=== PATIENT | female | born 1980 | race Caucasian/White ===

== ENCOUNTER 2018-04-29 23:53 | Inpatient (IN) ==
[2018-04-30] MEDS ORDERED: ceFAZolin 2 GM Premix Inj 2 GM/50 ML PIGGYBACK IV.SIG PRN (00:35)
--- NOTE | 2018-04-30 00:35 | P.HPOB ---
History of Present Illness Primary Care Physician: UNKNOWN Dr. Sy Chief Complaint: Water broke History of Present Illness: Patient is a 38-year-old white female now 37 weeks presents with spontaneous rupture the membranes at term. Her amnio sure is positive and she had ruptured membranes at approximately 1830 yesterday. Her NST is reactive she is having irregular contractions. Her baby is in a breech presentation and has been for month this is due to her multiple fibroid tumors of the uterus Weeks Gestation:: 37 Para: 0 : 1 Review of Systems All other systems reviewed negative except as stated in HPI [facility] - Social History I have reviewed the patient's Social History: Yes - Tobacco History Smoking Status: Never smoker - Alcohol History How Often Do You Have a Drink Containing Alcohol: Never - Substance Use History Substance History: No History of Abuse - Travel History History of Recent Travel: No Recent Travel in the [facility] Within the Last 8 Weeks: No Recent Travel Out of the Country Within the Last 8 Weeks: No Medications and Allergies Allergies Allergy/AdvReac Type Severity Reaction Status Date / Time No Known Allergies Allergy Unverified 04/30/18 00:29 Home Medications Medication Instructions Recorded Confirmed Type vit [id number] 1 tab PO DAILY 04/30/18 04/30/18 History [ + DHA] Exam Vital signs: Vital Signs 04/30/18 00:20 Temperature 97.5 F L Pulse Rate 83 Respiratory Rate 18 Blood Pressure 124/82 Narrative: GENERAL: Well-nourished, well-developed patient. SKIN: Warm and dry. HEAD: Normocephalic and atraumatic. EYES: No scleral icterus. No injection or drainage. ENT: No nasal drainage noted. Mucous membranes pink. Airway patent. NECK: Supple, trachea midline. No JVD. CARDIOVASCULAR: Regular rate and rhythm without murmurs, gallops, or rubs. RESPIRATORY: Breath sounds equal bilaterally. No accessory muscle use. BREASTS: Bilateral exam showed no masses , no retractions, no nipple discharge. ABDOMEN/GI: Abdomen soft, non-tender, bowel sounds present, no rebound, no guarding Gravid to [-37] weeks size Fundal Height: [-37] GENITOURINARY: External Genitalia: intact and normal in appearance Cervix: [post-] Dilatation: [-2] Effacement: [80-] Station: [-3] Presentation: [-breech by US] Membranes: [ ruptured amnio sure positive] Uterine Contractions: [irreg-] FHT's: Category: [1-] Baseline: [133-] Reactive: [R-] Variability: [-mod] Decels: [-0] EXTREMITIES: No cyanosis or edema. BACK: Nontender without obvious deformity. No CVA tenderness. NEUROLOGICAL: Awake and alert. Motor and sensory grossly within normal limits. Five out of 5 muscle strength in all muscle groups. Normal speech. Results - Labs Labs: Amnio sure positive - Imaging Bedside ultrasound confirms baby in a breech presentation Caprini VTE Risk Assessment Caprini VTE Risk Assessment: No/Low Risk (score <= 1) Caprini Risk Assessment Model: Point Value = 1 Point Value = 2 Point Value = 3 Point Value = 5 Age 41-60 Minor surgery BMI > 25 kg/m2 Swollen legs Varicose veins or History of unexplained or recurrent spontaneous Oral contraceptives or hormone replacement Sepsis (< 1 month) Serious lung disease, including pneumonia (< 1 month) Abnormal pulmonary function Acute myocardial infarction Congestive heart failure (< 1 month) History of inflammatory bowel disease Medical patient at bed rest Age 61-74 Arthroscopic surgery Major open surgery (> 45 min) Laparoscopic surgery (> 45 min) Malignancy Confined to bed (> 72 hours) Immobilizing plaster cast Central venous access Age >= 75 History of VTE Family history of VTE Factor V Leiden Prothrombin [id number] Lupus anticoagulant Anticardiolipin antibodies Elevated serum homocysteine Heparin-induced thrombocytopenia Other congenital or acquired thrombophilia Stroke (< 1 month) Elective arthroplasty Hip, pelvis, or leg fracture Acute spinal cord injury (< 1 month) Prophylaxis Regimen: Total Risk Factor Score Risk Level Prophylaxis Regimen 0-1 Low Early ambulation 2 Moderate Order ONE of the following: *Sequential Compression Device (SCD) *Heparin 5000 units SQ BID 3-4 Higher Order ONE of the following medications: *Heparin 5000 units SQ TID *Enoxaparin/Lovenox 40 mg SQ daily (WT < 150 kg, CrCl > 30 mL/min) *Enoxaparin/Lovenox 30 mg SQ daily (WT < 150 kg, CrCl > 10-29 mL/min) *Enoxaparin/Lovenox 30 mg SQ BID (WT < 150 kg, CrCl > 30 mL/min) AND/OR *Sequential Compression Device (SCD) 5 or more Highest Order ONE of the following medications: *Heparin 5000 units SQ TID (Preferred with Epidurals) *Enoxaparin/Lovenox 40 mg SQ daily (WT < 150 kg, CrCl > 30 mL/min) *Enoxaparin/Lovenox 30 mg SQ daily (WT < 150 kg, CrCl > 10-29 mL/min) *Enoxaparin/Lovenox 30 mg SQ BID (WT < 150 kg, CrCl > 30 mL/min) AND *Sequential Compression Device (SCD) Assessment and Plan - Diagnosis (1) Leakage of amniotic fluid Code(s): O42.90 - Premature rupture of membranes, unspecified as to length of time between rupture and onset of labor, unspecified weeks of gestation Status : Acute (2) Breech presentation Code(s): O32.1XX0 - Maternal care for breech presentation, not applicable or unspecified; D25.9 - Leiomyoma of uterus, unspecified Status: Acute (3) Uterine fibroids affecting in third trimester Code(s): O34.13 - Maternal care for benign tumor of corpus uteri, third trimester; D25.9 - Leiomyoma of uterus, unspecified Status: Acute (4) 37 weeks gestation of Code(s): Z3A.37 - 37 weeks gestation of Status: Acute - Plan This primiparous patient at 37 weeks with a baby in a breech presentation now presents with spontaneous rupture the membranes. Amnio sure is positive, NST reactive, contractions noted, cervix 2/80/-3. Ultrasound done at bedside shows baby continued in breech presentation will notify her OB doctor Dr. Sy and they will proceed with the section for delivery
[2018-04-30] MEDS ORDERED: Citric Acid/Sodium Citrate Liq 30 ML UDC PO SCH (00:45)
[2018-04-30] MEDS ORDERED: Morphine Sulfate PF Inj 5 MG/10 ML Ampul ONE (00:51)
[2018-04-30 01:03] LABS: Baso % (Auto) 0.2 % (0.0-2.0); Eos # (Auto) 0.1 th/mm3 (0.0-0.4); Eos % (Auto) 0.8 % (0.0-4.0); Hematocrit 36.3 % (35.0-46.0); Hemoglobin 12.8 gm/dL (11.6-15.3); Lymph # (Auto) 1.8 th/mm3 (1.0-4.8); Mean Corpuscular HGB Conc 35.2 % (32.0-36.0); Mean Corpuscular Hemoglobin 32.5 pg (27.0-34.0); Mean Corpuscular Volume 92.3 fL (80.0-100.0); Mean Platelet Volume 8.7 fL (7.0-11.0); Mono # (Auto) 0.7 th/mm3 (0.0-0.9); Mono % (Auto) 6.8 % (0.0-8.0); Neut # (Auto) 7.8 th/mm3 (1.8-7.7); Neut % (Auto) 75.2 % (16.0-70.0); Platelet Count 234 th/mm3 (150-450); Red Blood Count 3.93 mil/mm3 (4.00-5.30); Red Cell Distribution Width 14.1 % (11.6-17.2); White Blood Count 10.4 th/mm3 (4.0-11.0)
[2018-04-30 01:04] LABS: Bilirubin,Urine Negative (Negative); Clarity,Urine Hazy (Clear); Color,Urine Yellow (Yellw/Straw); Glucose,Urine (UA) Negative (Negative); Leukocyte Esterase,Urine Negative (Negative); Mucus,Urine Few /lpf (Occasional); Nitrite,Urine Negative (Negative); Squamous Epithelial Cell,Urine 7 /hpf (0-5)
[2018-04-30 01:09] LABS: Amphetamine Screen,Urine Neg (Neg); Barbiturate Screen,Urine Neg (Neg); Cannabinoid Screen,Urine Neg (Neg); Cocaine Screen,Urine Neg (Neg)
[2018-04-30] MEDS ORDERED: Ketorolac Inj 30 MG/ML (IVP) Vial IV.PUSH ONE (01:11)
[2018-04-30 01:12] LABS: Opiate Screen,Urine Neg (Neg)
[2018-04-30] MEDS ORDERED: Oxytocin 30 Units/500ml Premix 30 UNITS/500 ML BAG IV.SIG ONE (01:20)
[2018-04-30 02:08] LABS: Cord Arterial Blood HCO3 25.3
[2018-04-30] MEDS ORDERED: Dextrose 40% (Infant/Peds) 15 GM Carb/37.5 ML Gel Tube ONE (02:16)
[2018-04-30] MEDS ORDERED: Naloxone Inj 0.4 MG/ML Vial IV.PUSH PRN (04:15)
[2018-04-30] MEDS: ceFAZolin Inj 2,000 MG in Sodium Chlor 0.9% Inj 80 ML IV.SIG SCH ×2 (04:31→10:00)
[2018-04-30] MEDS ORDERED: Oxytocin 30 Units/500ml Premix 30 UNITS/500 ML BAG IV.SIG PRN (06:20)
[2018-04-30] MEDS ORDERED: PRENATAL VIT IRON FOLIC DHA PO SCH (09:00)
--- NOTE | 2018-04-30 11:12 | MP ---
cc: Venita Arteaga MD DATE OF OPERATION: 04/30/2018 PREOPERATIVE DIAGNOSES: Intrauterine gestation at 38 weeks with spontaneous rupture of membranes with transverse presentation back up, multiple fibroids, and advanced maternal age in\ early labor. POSTOPERATIVE DIAGNOSES: Intrauterine gestation at 38 weeks with spontaneous rupture of membranes with transverse presentation back up, multiple fibroids, and advanced maternal age in\ early labor. PROCEDURE PERFORMED: Primary low transverse section. OPERATING SURGEON: Venita Arteaga MD. ANESTHESIA: Spinal. FINDINGS AT SURGERY: Included a viable male weighing 7 pounds 0 ounces, Apgars 2 and 8, a transverse presentation back up with right arm presenting, multiple fibroids. BLOOD LOSS: 800 mL. COMPLICATIONS: None. PROCEDURE IN DETAIL: After proper consents were obtained, blood was typed and screened, the patient was taken to the operating room where spinal anesthetic was placed. She was then placed in the dorsal position, sterilely prepped and draped, and a Lancaster catheter was placed. At this time using a sharp knife, a Pfannenstiel skin incision was performed. This was carried down to the fascia using Bovie cautery. The fascia was nicked in the midline and extended superolaterally on each side with blunt dissection of the muscles off of the fascia. We then identified the peritoneum, grasped with hemostats, and entered sharply with the Metzenbaum scissors. We then extended superiorly and inferiorly, paying close attention to the bladder. We then placed the bladder blade, developed a bladder flap, replaced the bladder blade, and made a transverse incision in the lower uterine segment. Rupture of membranes, which had already been done, did reveal clear fluid. At that time, the right arm was presenting in the incision. I moved that away and up. I was able to identify the right leg, which I delivered out through the incision, which then allowed me to palpate the buttocks and bring up the left leg. I then rotated the body to the dorsal side up. The right arm was already out of the incision. I swept the left arm, which was difficult to reach as this was way up by the head, across the face and chest and out. I then delivered the vertex. Cord was clamped x 2 and cut in between. The was handed to team in attendance. A viable male, 7 pounds 0 ounces with Apgars 2 and 8. At this time, the cord pH segment was obtained. I do not have that value at this time. Cord blood was obtained. Placenta was removed. The uterine cavity was wiped clean of clots and debris. I did not remove the uterus from the incision due to the large size of the fibroids, so I closed it in the abdominopelvic cavity. I used a #1 chromic suture starting at each apex, meeting in the midline in a running interlocking fashion with excellent hemostasis noted. Irrigation was performed in the abdominopelvic cavity. Hemostasis was assured. We reapproximated the muscles using a #1 chromic suture x 1. We then closed the fascia using #0 Vicryl starting at each apex, meeting in the midline in a running fashion. Irrigation was performed. The subcutaneous tissue hemostasis achieved with Bovie cautery. There was no space to close. Then we closed the skin with ravi. All sponge, lap, and needle counts were correct x 3. MD EDUARDO Lambert/rs , 08:10 AM , 08:19 AM
--- NOTE | 2018-04-30 12:16 | P.PNOB ---
Subjective Post op day: 1 Objective Vital Signs/I&O: Vital Signs 04/30/18 00:20 04/30/18 02:15 04/30/18 02:30 Temperature 97.5 F L 97.7 F Pulse Rate 83 58 L 62 Respiratory Rate 18 16 17 Blood Pressure 124/82 127/85 120/65 04/30/18 02:45 04/30/18 02:57 04/30/18 03:00 Temperature Pulse Rate 61 57 L 55 L Respiratory Rate 19 18 Blood Pressure 121/74 124/61 04/30/18 03:15 04/30/18 03:24 04/30/18 03:30 Temperature 97.2 F L Pulse Rate 58 L 61 Respiratory Rate 20 18 Blood Pressure 118/70 126/72 04/30/18 04:15 04/30/18 11:15 Temperature 97.5 F L 98.2 F Pulse Rate 62 71 Respiratory Rate 18 16 Blood Pressure 138/81 122/68 Intake & Output 04/29/18 04/30/18 04/30/18 18:59 06:59 18:59 Weight 92.986 kg Result Diagrams: 04/30/18 00:50 Objective Remarks: GENERAL: Well-nourished, well-developed patient. CARDIOVASCULAR: Regular rate and rhythm without murmurs, gallops, or rubs. RESPIRATORY: Breath sounds equal bilaterally. No accessory muscle use. ABDOMEN/GI: Abdomen soft, non-tender, bowel sounds present. Incision: Clean, dry and intact. Fundus: Firm, non-tender at umbilicus. GENITOURINARY: Light to moderate bleeding. EXTREMITIES: No cyanosis or edema, non-tender, without signs of DVT. Medications and IVs: Active Medications Citric Acid/Sodium Citrate (Sodium Citrate/Citric Acid Liq) 30 ml PO CLOTH ROLL WINDER GLENDA Stop: 05/04/18 00:44 Diphenhydramine HCl (Benadryl Inj) 25 mg IV.PUSH Q6H PRN PRN Reason: MILD TO MODERATE ITCHING Stop: 05/01/18 04:14 Diphenhydramine HCl (Benadryl) 50 mg PO Q6H PRN PRN Reason: MILD TO MODERATE ITCHING Stop: 05/01/18 04:14 Diphtheria/Pertussis/Tetanus Vacc (Boostrix Vaccine Inj) 0.5 ml IM .ONCE ONE Stop: 05/01/18 16:01 Cefazolin Sodium/Dextrose (Ancef 2 Gm Premix Inj) 2 gm in 50 mls @ 100 mls/hr IV.SIG CLOTH ROLL WINDER PRN PRN Reason: ON-CALL Stop: 05/04/18 00:34 Lactated Ringer's (Lr 1000 Ml Inj) 1,000 mls @ 150 mls/hr IV.CONT .Q6H40M GLENDA Lactated Ringer's (Lr 1000 Ml Inj) 1,000 mls @ 100 mls/hr IV.CONT .Q10H GLENDA Stop: 05/01/18 02:19 Oxytocin (Pitocin 30 Units/Ns 500 Ml Premix) 30 units in 500 mls @ 100 mls/hr IV.SIG UNSCH PRN PRN Reason: Heavy bleeding Ketorolac Tromethamine (Toradol Inj) 30 mg IM Q6H PRN PRN Reason: SEE LABEL COMMENTS Measles/Mumps/Rubella Vaccine Live (M-M-R Ii Vaccine Inj) 0.5 ml SQ .ONCE ONE Stop: 05/01/18 16:01 Miscellaneous Information (Misc Nursing Information) 1 each OTHER UNSCH PRN PRN Reason: SEE LABEL COMMENTS Stop: 05/01/18 04:14 Miscellaneous Information (Mis Nursing Information) 1 each OTHER UNSCH PRN PRN Reason: SEE LABEL COMMENTS Stop: 05/01/18 04:14 Naloxone HCl (Narcan Inj) 0.4 mg IV.PUSH UNSCH PRN PRN Reason: SEE LABEL COMMENTS Stop: 05/01/18 04:14 Oxycodone/Acetaminophen (Percocet 5/325 Mg) 2 tab PO Q4H PRN PRN Reason: PAIN SCALE 6 TO 10 Oxycodone/Acetaminophen (Percocet 5/325 Mg) 1 tab PO Q4H PRN PRN Reason: PAIN SCALE 3 TO 5 Vit/Calcium/Iron/Folic Ac (Stuartnatal Plus 3) 1 tab PO DAILY GLENDA Sodium Chloride (Ns Flush) 2 ml IV.FLUSH BID GLENDA Sodium Chloride (Ns Flush) 2 ml IV.FLUSH PRN PRN PRN Reason: FLUSH AFTER USING IV ACCESS Assessment and Plan - Plan POD # 1 s/p primary c/s due to transverse back up presentation, doing well routine care
[2018-05-01 05:39] LABS: Baso % (Auto) 0.1 % (0.0-2.0); Eos # (Auto) 0.1 th/mm3 (0.0-0.4); Eos % (Auto) 0.8 % (0.0-4.0); Hematocrit 24.5 % (35.0-46.0); Hemoglobin 8.7 gm/dL (11.6-15.3); Lymph # (Auto) 1.2 th/mm3 (1.0-4.8); Lymph % (Auto) 12.9 % (9.0-44.0); Mean Corpuscular HGB Conc 35.3 % (32.0-36.0); Mean Corpuscular Hemoglobin 32.8 pg (27.0-34.0); Mean Corpuscular Volume 93.1 fL (80.0-100.0); Mean Platelet Volume 8.4 fL (7.0-11.0); Mono # (Auto) 0.6 th/mm3 (0.0-0.9); Mono % (Auto) 6.9 % (0.0-8.0); Neut # (Auto) 7.1 th/mm3 (1.8-7.7); Neut % (Auto) 79.3 % (16.0-70.0); Platelet Count 163 th/mm3 (150-450); Red Blood Count 2.63 mil/mm3 (4.00-5.30); Red Cell Distribution Width 14.6 % (11.6-17.2)
[2018-05-01] MEDS: Prenatal Vit/Ca/Iron/Folic Acid Tablet PO SCH (09:44)
[2018-05-01] MEDS ORDERED: Ketorolac Inj 30 MG/ML (IVP) Vial IV.PUSH PRN (11:05)
--- NOTE | 2018-05-01 12:29 | P.PNOB ---
Subjective Post op day: 2 Interval history: Pt doing well, good pain control, tolerating po, ambulating well Objective Vital Signs/I&O: Vital Signs 04/30/18 16:15 04/30/18 16:58 04/30/18 20:00 Temperature 97.9 F 97.7 F Pulse Rate 77 74 Respiratory Rate 28 H 20 18 Blood Pressure 98/67 L 134/72 04/30/18 23:53 05/01/18 04:00 05/01/18 08:00 Temperature 98.1 F 98.2 F 97.9 F Pulse Rate 68 76 86 Respiratory Rate 18 17 20 Blood Pressure 106/52 L 115/65 133/73 Result Diagrams: 05/01/18 05:00 Objective Remarks: GENERAL: Well-nourished, well-developed patient. CARDIOVASCULAR: Regular rate and rhythm without murmurs, gallops, or rubs. RESPIRATORY: Breath sounds equal bilaterally. No accessory muscle use. ABDOMEN/GI: Abdomen soft, non-tender, bowel sounds present. Incision: Clean, dry and intact. Fundus: Firm, non-tender at umbilicus. GENITOURINARY: Light to moderate bleeding. EXTREMITIES: No cyanosis or edema, non-tender, without signs of DVT. Medications and IVs: Active Medications Citric Acid/Sodium Citrate (Sodium Citrate/Citric Acid Liq) 30 ml PO FELL CUTTER [facility] Stop: 05/04/18 00:44 Diphtheria/Pertussis/Tetanus Vacc (Boostrix Vaccine Inj) 0.5 ml IM .ONCE ONE Stop: 05/01/18 16:01 Cefazolin Sodium/Dextrose (Ancef 2 Gm Premix Inj) 2 gm in 50 mls @ 100 mls/hr IV.SIG FELL CUTTER PRN PRN Reason: ON-CALL Stop: 05/04/18 00:34 Lactated Ringer's (Lr 1000 Ml Inj) 1,000 mls @ 150 mls/hr IV.CONT .Q6H40M [facility] Oxytocin (Pitocin 30 Units/Ns 500 Ml Premix) 30 units in 500 mls @ 100 mls/hr IV.SIG UNSCH PRN PRN Reason: Heavy bleeding Measles/Mumps/Rubella Vaccine Live (M-M-R Ii Vaccine Inj) 0.5 ml SQ .ONCE ONE Stop: 05/01/18 16:01 Oxycodone/Acetaminophen (Percocet 5/325 Mg) 2 tab PO Q4H PRN PRN Reason: PAIN SCALE 6 TO 10 Oxycodone/Acetaminophen (Percocet 5/325 Mg) 1 tab PO Q4H PRN PRN Reason: PAIN SCALE 3 TO 5 Vit/Calcium/Iron/Folic Ac (Stuartnatal Plus 3) 1 tab PO DAILY [facility] Last Admin: 05/01/18 09:44 Dose: 1 tab Sodium Chloride (Ns Flush) 2 ml IV.FLUSH BID [facility] Last Admin: 05/01/18 00:37 Dose: 2 ml Sodium Chloride (Ns Flush) 2 ml IV.FLUSH PRN PRN PRN Reason: FLUSH AFTER USING IV ACCESS Assessment and Plan - Plan POD # 2 s/p primary c/s due to transverse back up presentation, doing well routine care
[2018-05-01] MEDS ORDERED: Measles/Mumps/Rubella Vaccine Inj 0.5 ML Vial SQ ONE (16:00)
[2018-05-01] MEDS ORDERED: Diphtheria/Tetanus/Pertussis Vaccine Inj 0.5 ML Syringe IM ONE (16:00)
[2018-05-01] MEDS ORDERED: Influenza (Quadrivalent) Vaccine 0.5 ML Syringe IM ONE (18:45)
--- NOTE | 2018-05-02 07:37 | P.PNOB ---
Subjective Post day: 2 Interval history: 38 yo who is PPd #2 after CS not sure if she wants to go home Objective Vital Signs/I&O: Vital Signs 05/01/18 08:00 05/01/18 20:00 Temperature 97.9 F 99.3 F Pulse Rate 86 72 Respiratory Rate 20 16 Blood Pressure 133/73 116/68 Result Diagrams: 05/01/18 05:00 Objective Remarks: GENERAL: Well-nourished, well-developed patient. ABDOMEN/GI: Abdomen soft, non-tender. Fundus: Firm, non-tender at umbilicus. GENITOURINARY: Light to moderate bleeding. EXTREMITIES: No cyanosis or edema, non-tender, without signs of DVT. Medications and IVs: Active Medications Citric Acid/Sodium Citrate (Sodium Citrate/Citric Acid Liq) 30 ml PO IRB COMPLIANCE COORDINATOR [facility] Stop: 05/04/18 00:44 Cefazolin Sodium/Dextrose (Ancef 2 Gm Premix Inj) 2 gm in 50 mls @ 100 mls/hr IV.SIG IRB COMPLIANCE COORDINATOR PRN PRN Reason: ON-CALL Stop: 05/04/18 00:34 Lactated Ringer's (Lr 1000 Ml Inj) 1,000 mls @ 150 mls/hr IV.CONT .Q6H40M [facility] Oxytocin (Pitocin 30 Units/Ns 500 Ml Premix) 30 units in 500 mls @ 100 mls/hr IV.SIG UNSCH PRN PRN Reason: Heavy bleeding Oxycodone/Acetaminophen (Percocet 5/325 Mg) 2 tab PO Q4H PRN PRN Reason: PAIN SCALE 6 TO 10 Last Admin: 05/02/18 07:11 Dose: 2 tab Oxycodone/Acetaminophen (Percocet 5/325 Mg) 1 tab PO Q4H PRN PRN Reason: PAIN SCALE 3 TO 5 Last Admin: 05/01/18 22:01 Dose: 1 tab Vit/Calcium/Iron/Folic Ac (Stuartnatal Plus 3) 1 tab PO DAILY [facility] Last Admin: 05/01/18 09:44 Dose: 1 tab Sodium Chloride (Ns Flush) 2 ml IV.FLUSH BID [facility] Last Admin: 05/02/18 04:17 Dose: Not Given Sodium Chloride (Ns Flush) 2 ml IV.FLUSH PRN PRN PRN Reason: FLUSH AFTER USING IV ACCESS Assessment and Plan - Plan POD # 2 s/p primary c/s due to transverse back up presentation, doing well routine care, probable DC in AM
[2018-05-02] MEDS: Prenatal Vit/Ca/Iron/Folic Acid Tablet PO SCH (12:37)
[2018-05-03 08:18] VITALS: BP 130/82; PULSE 75; RESP 20; TEMP 97.8
[2018-05-03] MEDS: Prenatal Vit/Ca/Iron/Folic Acid Tablet PO SCH (09:55)
[2018-05-03] MEDS ORDERED: Ibuprofen 600 MG Tablet PO PRN (10:03)
--- NOTE | 2018-05-03 10:07 | P.DS ---
Date of admission: 04/30/18 00:34 Primary care physician: UNKNOWN Brief History from admission: Patient is a 38-year-old white female now 37 weeks presents with spontaneous rupture the membranes at term. Her amnio sure is positive and she had ruptured membranes at approximately 1830 yesterday. Her NST is reactive she is having irregular contractions. Her baby is in a breech presentation and has been for month this is due to her multiple fibroid tumors of the uterus, CS by Kerrie DS: Diagnosis - Discharge Diagnosis (1) delivery delivered Status: Acute DS: Medications - Discharge Medications Prescriptions: oxycodone-acetaminophen 2 tab PO Q4H PRN 3 Days #24 tab PRN Reason: Pain Scale 6 To 10 DS: Summary Hospital Course: Patient admitted and CS performed and patient remained in hospital for 3 days - Time Spent with Patient Total time spent providing and/or coordinating discharge services: Less than 30 minutes Exam Vital signs: Vital Signs 05/02/18 20:00 05/03/18 08:00 Temperature 98.0 F 97.8 F Pulse Rate 80 75 Respiratory Rate 18 20 Blood Pressure 116/66 130/82 - Constitutional no acute distress Results Procedures completed during hospitalization: section Discharge Plan - Discharge Disposition Patient Disposition: 01 Discharge Home - Discharge Condition Condition: Good - Discharge Order Discharge Orders: Discharge Order (Routine); Ordered 05/03/18 Ordered By: Asa Cervantes - Physicians Team Primary Care Provider: UNKNOWN, Attending Provider: Venita Sy
== END 2018-05-03 13:38 | disposition home or self-care (01) ==
LOC: HOBED 23:53 → H2E 04-30 00:34 → H1EA 04-30 03:58
PROVIDERS: ADMIT Obstetrics & Gynecology; ATTEND Obstetrics & Gynecology